=== PATIENT | female | born 1995 | race Two or more races ===

== ENCOUNTER 2017-04-23 22:29 | Emergency (ER) | payer OTHER ==
[~2017-04-23] VITALS: Ht 157.5 cm; Wt 51.3 kg
[~2017-04-23 22:29] MED LIST: CETI10CH3
[2017-04-23 22:37] VITALS: BP 122/72
[2017-04-23] MEDS ORDERED: IBUPROFEN 400 MG TAB PO ONE (23:45)
[2017-04-23] MEDS ORDERED: TETANUS-DIPTH-ACEL PERTUSSIS 0.5ML SYRG IM ONE (23:45)
[2017-04-23] MEDS ORDERED: NEOMYCIN-BACITRACIN-POLYM UNITDOSE PKG TOP OINT TOP ONE (23:45)
== END 2017-04-24 00:05 | disposition home or self-care (01) ==
LOC: ER 22:40
DX: T25.122A Burn of first degree of left foot, initial encounter (principal); X12.XXXA Contact with other hot fluids, initial encounter; Y93.89 Activity, other specified; Y99.0 Civilian activity done for income or pay; Y92.69 Other specified industrial and construction area as the place of occurrence of the external cause
CPT/HCPCS: 90471; 90715

== ENCOUNTER 2018-07-20 19:27 | Emergency (ER) | payer OTHER ==
[2018-07-20 20:12] VITALS: BP 102/60
== END 2018-07-20 20:20 | disposition left against medical advice (07) ==
LOC: ER 19:33
DX: R51 Headache (principal); M79.605 Pain in left leg; M79.604 Pain in right leg; V43.62XA Car passenger injured in collision with other type car in traffic accident, initial encounter; Y93.89 Activity, other specified; Y99.8 Other external cause status; Y92.410 Unspecified street and highway as the place of occurrence of the external cause
CPT/HCPCS: 70450; 72125; 73590